=== PATIENT | female | born 1960 | race Caucasian/White ===

== ENCOUNTER → 2016-04-29 | Outpatient (CLI) | payer BC ==
[~2016-04-29] MED LIST: CTLP20T; SULF1TAB35 PO
--- NOTE | 2016-04-29 12:11 | Diagnostic Imaging Report ---
PROCEDURE: CT urinary tract, rule out kidney stone. TECHNIQUE: Multiple contiguous axial images were obtained through the abdomen and pelvis without the use of intravenous contrast. INDICATION: Right flank pain. FINDINGS: The lung bases appear clear. The liver demonstrates a 1.4 cm hypodense lesion in the central aspect of the liver anteriorly , and another lesion measuring 2.3 cm anteriorly in the right hepatic dome. Another from lesion posteriorly in the right hepatic lobe measuring 2.2 cm is also seen. These are not well evaluated without intravenous contrast. The gallbladder, the spleen, the adrenals, and the pancreas appear unremarkable. The kidneys demonstrate no stones or hydronephrosis. There are calcifications in the pelvis compatible with phleboliths. No ureteric or bladder stones. The abdominal aorta is normal in caliber. No para-aortic significantly enlarged lymph nodes seen. The appendix is the normal. There is a tiny fat-containing umbilical hernia. There is no bowel obstruction. There is no significant free fluid or fluid collection in the abdomen or pelvis seen. The uterus and adnexa appear grossly unremarkable. Mild degenerative changes of the lumbar spine seen. IMPRESSION: 1. No urinary tract stones or hydronephrosis. 2. Multiple indeterminate hepatic lesions seen. Further evaluation with dedicated enhanced hepatic mass protocol MRI or CT scan of the abdomen is recommended. Report was faxed to office of Dr. Pérez @ 12:09 PM/rachel. Dictated by: Dictated on workstation # [id number]
== END ==
LOC: RAD 10:21
PROVIDERS: ATTEND Family Medicine
DX: R10.84 Generalized abdominal pain (principal)
CPT/HCPCS: 74176

== ENCOUNTER 2021-03-17 13:33 | Emergency (ER) | payer SELFPAY ==
[~2021-03-17] VITALS: Ht 160 cm; Wt 68.0 kg
[2021-03-17 13:40] VITALS: BP 123/86
--- NOTE | 2021-03-17 14:29 | ED General ---
General Chief Complaint: Cough/Cold/Flu Symptoms Stated Complaint: FEVER/CHILLS/HEADACHE/BODYACHES/COUGH Nursing Triage Note: COLD SX STARTING FRIDAY WITH FEVER STARTING LAST NIGHT. TOOK TYLENOL AT 1115 AND MOTRIN AT 1330 Source of Information: Patient Exam Limitations: No Limitations History of Present Illness Date Seen by Provider: Mar 17, 2021 Time Seen by Provider: 14:28 Initial Comments To ER with cough headache chills starting evening 03/15/2021 symptoms progressed more yesterday. She has had both Covid vaccines and a booster. She continues to have a fever despite alternating Tylenol and ibuprofen. She is otherwise healthy her only medication is propranolol which is taken for migraines. Timing/Duration: 1-2 Days Severity: Moderate Associated Systoms: Cough, Fever/Chills, Malaise Allergies and Home Medications Allergies Coded Allergies: No Known Drug Allergies (Unverified Allergy, Mild, 04/13/09) Patient Home Medication List Home Medication List Reviewed: Yes Discontinued Medications Citalopram Hydrobromide (Celexa) 20 Mg Tablet, (Reported) Discontinued Reason: No Longer Taking Entered as Reported by: ANTHONY BALL on 04/13/092039 Last Action: Discontinued Sulfamethoxazole/Trimethoprim (Bactrim DS) 1 Each Tablet, 1 EACH PO BID Discontinued Reason: No Longer Taking Prescribed by: DAX ISIDRO on 04/13/092117 Last Action: Discontinued Review of Systems Review of Systems Constitutional: see HPI, chills, fever, malaise, weakness EENTM: see HPI, nose congestion Respiratory: see HPI, cough Cardiovascular: no symptoms reported Genitourinary: no symptoms reported Musculoskeletal: no symptoms reported Skin: no symptoms reported Psychiatric/Neurological: No Symptoms Reported Hematologic/Lymphatic: No Symptoms Reported Past [id number]-Sslrtf Hx Patient Social History Smoking Status: Never a Smoker Smokeless Tobacco Frequency: Former User Substance use?: No Alcohol Use?: No Immunizations Up To Date COVID19 Vaccine Orthopedic Cast Specialist: ROSANNE Physical Exam Vital Signs Vital Signs - First Documented 03/17/21 13:40 Temp 37.9 Pulse 90 Resp 16 B/P (MAP) 123/86 (98) Pulse Ox 97 O2 Delivery Room Air Capillary Refill : Less Than 3 Seconds Height, Weight, BMI Height: '" Weight: lbs. oz. kg; 26.00 BMI Method: General Appearance: No Apparent Distress, WD/WN Eyes: Bilateral Eye Normal Inspection, Bilateral Eye PERRL, Bilateral Eye EOMI Neck: Full Range of Motion, Normal Inspection Respiratory: No Accessory Muscle Use, No Respiratory Distress Cardiovascular: Regular Rate, Rhythm Gastrointestinal: Normal Bowel Sounds, Non Tender, Soft Extremity: Normal Capillary Refill, Normal Inspection Neurologic/Psychiatric: Alert, Oriented x3 Skin: Normal Color, Warm/Dry Progress/Results/Core Measures Suspected Sepsis SIRS Temperature: Pulse: 90 Respiratory Rate: 16 Blood Pressure 123 /86 Mean: 98 Results/Orders Lab Results Laboratory Tests Test 03/17/21 13:45 Range/Units Influenza Type A (RT-PCR) Not Detected Not Detecte Influenza Type B (RT-PCR) Not Detected Not Detecte SARS-CoV-2 RNA (RT-PCR) Detected H Not Detecte My Orders Orders - DAMI DANIELS APRN Covid 19 Inhouse Test (03/17/21 13:56) Influenza A And B By Pcr (03/17/21 13:56) Vital Signs/I&O 03/17/21 13:40 Temp 37.9 Pulse 90 Resp 16 B/P (MAP) 123/86 (98) Pulse Ox 97 O2 Delivery Room Air Capillary Refill : Less Than 3 Seconds Blood Pressure Mean: 98 Departure Impression Primary Impression: COVID-19 Disposition: 01 HOME, SELF-CARE Condition: Stable Departure-Patient Inst. Decision time for Depature: 14:28 Referrals: KORY VALENTE MD (PCP/Family) Primary Care Physician Patient Instructions: COVID-19 ED Add. Discharge Instructions: 1. Continue to alternate Tylenol and ibuprofen. You can return to ER for any concerns. You can return to work on 03/25/2021. All discharge instructions reviewed with patient and/or family. Voiced underst anding. DAMI DANIELS APRN Mar 17, 2021 14:28
== END 2021-03-17 14:41 | disposition home or self-care (01) ==
LOC: EDUNIT# 13:33 → ER 13:35
DX: U07.1 COVID-19 (principal); G43.909 Migraine, unspecified, not intractable, without status migrainosus; Z87.891 Personal history of nicotine dependence; Z79.899 Other long term (current) drug therapy
CPT/HCPCS: 87636; 99283